=== PATIENT | female | born 1990 | race Caucasian/White ===

== ENCOUNTER 2016-07-05 13:52 | Outpatient (CLI) | payer BC, OTHER ==
[~2016-07-05] VITALS: Ht 154.9 cm; Wt 57.4 kg
[2016-07-05 14:30] VITALS: BP 115/66; PULSE 79; RESP 16
[2016-07-05] MEDS ORDERED: PRENAT PO (14:32)
[2016-07-05] MEDS ORDERED: FERR236T PO (14:32)
[2016-07-05] MEDS ORDERED: CALC600T11 PO (14:33)
[2016-07-05] MEDS ORDERED: VITA200C36 PO (14:34)
[2016-07-05] MEDS ORDERED: ASC500 PO (14:35)
--- NOTE | 2016-07-05 15:51 | RADRPT ---
PROCEDURE: OB ultrasound for biophysical profile CLINICAL INDICATION: Decreased movement TECHNIQUE: Multiple sonographic images of the pelvis were obtained. Transabdominal view of the gr avid uterus are available for review. The images were reviewed on a PACS workstation. COMPARISON: None FINDINGS: breathing movement = 2/2 tone = 2/2 motion = 2/2 VERITO = 2/2 The deepest vertical pocket of amniotic fluid equals 5.06 cm, within normal limits. Single live intrauterine with cardiac activity. heart rate equals 144 beats p er minute. Presentation is cephalic. The placenta is anterior. IMPRESSION: 1. Single viable intrauterine gestation. 2. Biophysical profile = 11/30. RPTAT: KK .Delfin Rivera MD, MD Date Time Electronically viewed and signed by .Delfin Rivera MD, MD on 07/05/2016 15:51 .B/
--- NOTE | 2016-07-05 18:38 | PN ---
DATE: This is an intrauterine at 23 weeks. ____. No vaginal bleeding. Positive movement . Vital signs stable. Exam within normal limits. Ultrasound shows ____. There is good move ment ____. Was discharged home. Follow up with her ENVIRONMENTAL MARKETING REPRESENTATIVE within 1 week. Dictated By: IRVING JUAREZ MD /NTS Conf#: [id number] DID#: [id number]
--- NOTE | 2016-07-05 19:12 | TRIAGE ---
OB Triage Datetime Report Generated by CPN: 07/05/2016 19:12 Datetime: 07/05/2016 18:10 Labor Evaluation Frequency: 0 Monitor Mode: External Pattern: Normal: <= 5 Contractions in 10 Minutes Resting Tone [place]: Relaxed Datetime: 07/05/2016 17:26 Labor Evaluation Frequency: 0 Monitor Mode: External Quality: Mild Pattern: Normal: <= 5 Contractions in 10 Minutes Resting Tone [place]: Relaxed Datetime: 07/05/2016 17:00 Labor Evaluation Frequency: x2 Monitor Mode: External Duration (sec)2399: 50 Quality: Mild Pattern: Normal: <= 5 Contractions in 10 Minutes Resting Tone [place]: Relaxed Datetime: 07/05/2016 16:00 Labor Evaluation Frequency: x4 Monitor Mode: External Duration (sec)2399: 50-60 Quality: Mild Pattern: Normal: <= 5 Contractions in 10 Minutes Resting Tone [place]: Relaxed Contraction Comments: PT REPORTS NOT FEELING CTX Datetime: 07/05/2016 15:00 Labor Evaluation Frequency: x2 Monitor Mode: External Duration (sec)2399: 40-50 Quality: Mild Pattern: Normal: <= 5 Contractions in 10 Minutes Resting Tone [place]: Relaxed Datetime: 07/05/2016 14:13 Stage of : OB Triage Maternal Assessment Level of Consciousness: Fully Conscious Headache: Denies Blurred Vision: No Respiratory Effort: Unlabored; Regular Rhythm; Equal Expansion Breath Sounds, Left: Clear and Equal Breath Sounds, Right: Clear and Equal Nausea/Vomiting: Denies RUQ Epigastric Pain: Denies Lower Extremities Edema: None Degree: None Upper Extremities Edema: None Degree: None Facial Edema: None Temperature Route: Axillary Fall Risk Assessment History of Falling: (0) No Secondary Diagnosis: (0) No Ambulatory Aid: (0) Bedrest/Nurse Assist IV Therapy: (0) No Gait: (0) Normal/Bedrest/Immobile Mental Status: (0) Oriented to Own Ability Fall Score: 0 Fall Risk Score Definition: No Risk: No action required Heart Rate Comments: 135-160BPM VIA DOPPLER Datetime: 07/05/2016 14:02 Time of Arrival: 07/05/2016 13:50 EGA: 23.3 Arrived By: Ambulatory Arrived From: Home Chief Complaint: NO MOVEMENT SINCE 07/03 PM; PT CONCERNED THAT WALKING THROUGH A SPRAY OF PES TICIDES AT HOME DEPOT ON 07/04 @1900 HAS HARMED FETUS. Movement: Absent Rupture of Membranes: Denies Vaginal Bleeding: None Vaginal Discharge: Denies Patient Complaints: Other Additional Patient Complaints: RUNNY NOSE SINCE MARCH WITH BLOOD Time Provider Notified: 07/05/2016 15:23 Initial Plan: DOPPLER, TOCO
== END 2016-07-05 18:43 | disposition home or self-care (01) ==
LOC: OBT 13:52 → L-D 13:53 → OBT 18:43
PROVIDERS: ATTEND Obstetrics & Gynecology
DX: O36.8120 Decreased fetal movements, second trimester, not applicable or unspecified (principal); Z3A.23 23 weeks gestation of pregnancy
CPT/HCPCS: 76818; Z7500; G0463

== ENCOUNTER 2016-10-19 20:21 | Outpatient (CLI) | payer BC ==
[~2016-10-19] VITALS: Ht 154.9 cm; Wt 65.2 kg
[~2016-10-19 20:21] MED LIST: ASC500 PO; CALC600T11 PO; FERR236T PO; PRENAT PO; VITA200C36 PO
[2016-10-19 20:43] VITALS: BP 109/58; PULSE 76; RESP 18; Ht 154.9 cm; Wt 65.2 kg
--- NOTE | 2016-10-19 21:29 | RADRPT ---
PROCEDURE: OB ultrasound for biophysical profile CLINICAL INDICATION: Biophysical profile. . TECHNIQUE: Multiple sonographic images of the pelvis were obtained. Transabdominal views are obta ined. COMPARISON: 10/19/2016 FINDINGS: Single intrauterine gestation. Presentation: Cephalic. Placenta: Anterior. No evidence of placental abruption. No evidence of placenta previa. breathing movement = 2/2 tone = 2/2 motion = 2/2 VERITO = 2/2 VERITO = 8.9 cm heart rate: 152 beats per minute IMPRESSION: Single intrauterine gestation. Biophysical profile 11/30 RPTAT: AADD .Haseeb Barron MD, MD Date Time Electronically viewed and signed by .Haseeb Barron MD, on 10/19/2016 21:29 .B/
--- NOTE | 2016-10-19 21:34 | RADRPT ---
PROCEDURE: Obstetrical ultrasound. CLINICAL INDICATION: , evaluation. Pelvic pain. TECHNIQUE: Transabdominal sonographic images of the pelvis are obtained. COMPARISON: 07/05/2016 FINDINGS: Single intrauterine gestation. There is a cephalic presentation. Measurements were made in order to determine age. The results are as follows: BPD = 8.86 cm, 35 weeks 6 days HC = 31.65 cm, 35 weeks 4 days AC = 33.13 cm, 37-week 0 days; this is suboptimally visualized and may be slightly over measured. FL = 6.97 cm, 35 weeks 5 days Heart rate = 168 beats per minute The placenta is anterior. There is no evidence for an abruption or placenta previa. Ovaries are not visualized. IMPRESSION: Single intrauterine gestation of approximately 36 weeks 0 days by ultrasound criteria. [place] estimated weight = 2932 g; 16 percentile for gestational age of 38 weeks 4 days. RPTAT: AADD .Haseeb Barron MD, MD Date Time Electronically viewed and signed by .Haseeb Barron MD, on 10/19/2016 21:34 .B/
--- NOTE | 2016-10-19 22:00 | PN ---
Triage Information Date/Time 10/19/16 2150 Weeks of Gestation 38w 4d : 1 Para: 0 Diabetes: none Hypertention: none Objective Vital Signs Date Time Temp Pulse Resp B/P Pulse Ox O2 Delivery O2 Flow Rate FiO2 10/19/16 20:43 97.7 76 18 109/58 97 Room Air Heart Rate: 140's Contractions: >10 Minutes Apart Results/Medications Imaging Results EFW 2932 gm 16 5 VERITO 8.9 BPP 8/8 NST reactive Assessment/Plan RTH in 3days for f/u for NST BPP RTH with routine labor instructions NICHOLAS KITCHEN MD Oct 19, 2016 22:00
--- NOTE | 2016-10-19 22:23 | TRIAGE ---
OB Triage Datetime Report Generated by CPN: 10/19/2016 22:22 Datetime: 10/19/2016 21:53 Labor Evaluation Frequency: IRREGULAR Monitor Mode: External Duration (sec)2399: 50-120 Quality: Mild Pattern: Normal: <= 5 Contractions in 10 Minutes Resting Tone [place]: Relaxed Contraction Comments: PT DENIES FEELING CONTRACTIONS Heart Rate FHR Baseline Rate: 130 Monitor Mode: External US FHR Baseline Changes: No Baseline Change Variability: Moderate 6-25 bpm Accelerations: 15X15 Decelerations: None Category: Category I Pain Assessment Pain Scale: 0 Pain Presence: None/Denies Pain Type: N/A Datetime: 10/19/2016 21:18 Membrane Status: Intact Datetime: 10/19/2016 21:06 Vaginal Exam Dilatation (cms): 0.0 Datetime: 10/19/2016 20:48 Stage of : OB Triage Maternal Assessment Level of Consciousness: Fully Conscious DTR's/Clonus: DTRs 2+; No Clonus Headache: Denies Blurred Vision: No Respiratory Effort: Unlabored; Regular Rhythm; Equal Expansion Breath Sounds, Left: Clear and Equal Breath Sounds, Right: Clear and Equal Nausea/Vomiting: Denies RUQ Epigastric Pain: Denies Lower Extremities Edema: None Degree: None Upper Extremities Edema: None Degree: None Facial Edema: None Temperature Route: Oral Fall Risk Assessment History of Falling: (0) No Secondary Diagnosis: (0) No Ambulatory Aid: (0) Bedrest/Nurse Assist IV Therapy: (0) No Gait: (0) Normal/Bedrest/Immobile Mental Status: (0) Oriented to Own Ability Fall Score: 0 Fall Risk Score Definition: No Risk: No action required Datetime: 10/19/2016 20:40 Time of Arrival: 10/19/2016 20:17 EGA: 38.4 Arrived By: Ambulatory Arrived From: Home Chief Complaint: NST Movement: Present Contractions: Denies/Absent Rupture of Membranes: Denies Vaginal Bleeding: None Vaginal Discharge: Denies Recent Sexual Intercouse: Yes Abdominal Trauma: Not Applicable Patient Complaints: None Time Provider Notified: 10/19/2016 20:53 Provider Notified: FIDELINA Initial Plan: EFW, BPP WITH VERITO, NST Datetime: 10/19/2016 20:31 Monitor Mode: External Heart Rate FHR Baseline Rate: 140 Monitor Mode: External US Datetime: 07/05/2016 14:13 Fall Score: 0 Fall Risk Score Definition: No Risk: No action required Datetime: 07/05/2016 14:02 EGA: 23.3
== END 2016-10-19 22:10 | disposition home or self-care (01) ==
LOC: OBT 20:21 → L-D 20:25 → OBT 22:10
PROVIDERS: ATTEND Obstetrics & Gynecology
DX: O41.8X30 Other specified disorders of amniotic fluid and membranes, third trimester, not applicable or unspecified (principal); Z3A.38 38 weeks gestation of pregnancy
CPT/HCPCS: 76815; 76818; Z7500; G0463

== ENCOUNTER 2016-10-22 13:22 | Outpatient (CLI) | payer BC ==
[~2016-10-22] VITALS: Ht 154.9 cm; Wt 141.0 kg
[2016-10-22 13:45] VITALS: BMI 28.0
[2016-10-22 13:46] VITALS: BP 112/71; PULSE 86; RESP 18
[2016-10-22 13:48] VITALS: Ht 154.9 cm; Wt 141.0 kg
--- NOTE | 2016-10-22 14:38 | RADRPT ---
PROCEDURE: Obstetrical ultrasound CLINICAL INDICATION: IUGR TECHNIQUE: Multiple sonographic images of the pelvis were obtained. The images were reviewed on a PACS workstation. COMPARISON: Obstetrical ultrasound from 10/19/2016 FINDINGS: The cervix is not well visualized. There is a single viable intrauterine gestation. Cardiac activity is present with 126 beats per minute. There is a vertex presentation. The placenta is anterior. There is no evidence for an abruption or placenta previa. There is a subjectively normal amount of amniotic fluid. Measurements were made in order to determine age. The results are as follows (cm): BPD =8.80 HC =31.76 AC =34.06 FL =6.87 Estimated gestational age by ultrasound of approximately 36 weeks, 1 day. The estimated date of delivery by ultrasound is 11/18/2016. Estimated gestational age by LMP of approximately 39 weeks, 0 days. The estimated date of delivery by LMP is 10/29/2016. EFW = 3034 grams (17th percentile) IMPRESSION: Single viable intrauterine gestation of approximately 36 weeks, 1 day . The estimated date of delivery is and 11/18/2016 . Dating by ultrasound is within 20 days of dating by LMP. Cephalic presentation. Estimated weight is 3034 g. RPTAT: EE Physician Robb Date Time Electronically viewed and signed by Physician Robb on 10/22/2016 14:37 /
--- NOTE | 2016-10-22 14:39 | RADRPT ---
PROCEDURE: US OB biophysical profile. CLINICAL INDICATION: evaluation TECHNIQUE: Multiple sonographic images of the pelvis were obtained. The images were reviewed on a PACS workstation. COMPARISON: Obstetrical ultrasound from 10/19/2016 FINDINGS: There is a single viable intrauterine gestation. Cardiac activity is present with 141 beats per min rizwan. There is a vertex presentation. The placenta is anterior. There is no evidence of placental abruption. There is a mildly low amount of amniotic fluid with an VERITO = 7.3 cm. Biophysical profile: movement 2/2 tone 2/2. breathing 2/2 VERITO 2/2 Total 11/30 RPTAT: AA . IMPRESSION: Normal biophysical profile. Mildly low VERITO of 7.3 cm. Physician Robb Date Time Electronically viewed and signed by Physician Robb on 10/22/2016 14:39 RA/
--- NOTE | 2016-10-22 17:32 | CONS ---
Date/Time of Note Date/Time of Note DATE: 10/22/16 TIME: 17:25 Consultation Date/Type/Reason Admit Date/Time October 22, 2016 OB triage consult Reason for Consultation This patient is a 26 years old 1 para 0 with estimated date of confinement of October 29, 2016 which makes her 39 weeks and 0 days . she came to the triage clinic for follow-up on her fairly low estimated weight and for follow-up of the possible IUGR. On examination she is a well-developed well-nourished lady at term her . general vital signs are within normal limits with blood pressure 112/71, pulse rate of 86, respiration 18,, temperature 91.8 During her evaluation she was having regular contractions and on pelvic examination her cervix was closed ,long with intact membranes abdomen was soft Constitutional: No chills, No diaphoresis, No disoriented, No febrile, No improved, No no complaints, No other, No poor po, No requiring IVF, No requiring O2 Eyes: No discharge, No no complaints, No other, No pain, No redness, No visual change ENT: No bleeding, No congestion, No discharge, No dysphagia, No no complaints, No other, No pain, No sore throat Respiratory: No cough, No no complaints, No other, No pain, No pleuritic pain, No shortness of breath, No sputum, No wheezing Cardiovascular: No chest pain, No edema, No lightheadedness, No no complaints, No orthopenea, No other, No palpitations, No paroxysmal nocturnal dyspnea Gastrointestinal: No blood, No constipation, No decreased appetite, No diarrhea , No flatus, No nausea, No no complaints, No other, No pain, No passing stool, No vomiting Genitourinary: No bleeding, No discharge, No dysuria, No flank pain, No hematuria, No no complaints, No other Musculoskeletal: other (As I mentioned on pelvic examination the cervix was closed long and membrane was intact) Skin: No bruising, No erythema, No laceration, No no complaints, No other, No pruritis, No rash, No skin lesions Neurologic: No confusion, No dizziness, No focal-weakness, No headache, No no complaints, No other, No seizure, No syncope Endocrine: No dry skin, No no complaints, No other, No polydypsia, No polyuria , No temp intolerance Psychological: No anxiety, No confusion, No depression, No nl mood/affect, No no complaints, No other, No suicidal Additional Comments On ultrasound studies the report is a single viable intrauterine gestation with cardiac activity was 141 bpm vertex presentation no evidence of placenta previa or abruption her VERITO today was 7.3 biophysical profile 11/30 on her measurement estimated weight was 3034 g which is 17th percentile at this stage of the estimated gestational age by ultrasound is 36 weeks and 1 day by LMP consult 10/29/2016 Disposition:. All of the findings was reported to Dr. Ann which is covering for Dr. Alexander Patient was distress regarding doing the kick count and if any evidence of low movement labor or any vaginal bleeding to return to labor delivery room immediately. end of dictation Social History Smoking Status: Never smoker Exam/Review of Systems Vital Signs Vitals Vital Signs Date Time Temp Pulse Resp B/P Pulse Ox O2 Delivery O2 Flow Rate FiO2 10/22/16 13:46 97.8 86 18 112/71 Room Air LAZARUS HERNANDEZ MD Oct 22, 2016 17:32
--- NOTE | 2016-10-22 17:56 | TRIAGE ---
OB Triage Datetime Report Generated by CPN: 10/22/2016 17:55 Datetime: 10/22/2016 17:14 Stage of : OB Triage Vaginal Exam Dilatation (cms): 0.0 Effacement (%): 0 Station: -4 Exam By: DR. FOROOHAR Datetime: 10/22/2016 17:13 Labor Evaluation Frequency: IRREG Monitor Mode: External Duration (sec)2399: 40-80 Quality: Mild Pattern: Normal: <= 5 Contractions in 10 Minutes Contraction Comments: PT DENIES FEELING UC'S AT THIS TIME Heart Rate FHR Baseline Rate: 125 Monitor Mode: External US Variability: Moderate 6-25 bpm Accelerations: 15X15 Decelerations: None Category: Category I Comments: NST REACTIVE FOR GESTATIONAL AGE Pain Assessment Pain Scale: 0 Pain Presence: None/Denies Pain Type: N/A Pain Goal: 0 Datetime: 10/22/2016 16:31 Monitor Mode: External Quality: Mild Contraction Comments: UTERINE IRRITABILITY NOTED AT THIS TIME Heart Rate FHR Baseline Rate: 130 Monitor Mode: External US Variability: Moderate 6-25 bpm Accelerations: 15X15 Decelerations: None Category: Category I Datetime: 10/22/2016 15:25 Labor Evaluation Frequency: 3-6 Monitor Mode: External Duration (sec)2399: 50-90 Quality: Mild Pattern: Normal: <= 5 Contractions in 10 Minutes Resting Tone [place]: Relaxed Heart Rate FHR Baseline Rate: 135 Monitor Mode: External US Variability: Moderate 6-25 bpm Accelerations: 15X15 Decelerations: None Category: Category I Datetime: 10/22/2016 13:54 Assessment Type: Admission Assessment Maternal Assessment Level of Consciousness: Fully Conscious DTR's/Clonus: DTRs 2+; No Clonus Headache: Denies Blurred Vision: No Respiratory Effort: Unlabored; Regular Rhythm; Equal Expansion Breath Sounds, Left: Clear and Equal Breath Sounds, Right: Clear and Equal Nausea/Vomiting: Denies RUQ Epigastric Pain: Denies Lower Extremities Edema: None Degree: None Upper Extremities Edema: None Degree: None Facial Edema: None Fall Risk Assessment History of Falling: (0) No Secondary Diagnosis: (0) No Ambulatory Aid: (0) Bedrest/Nurse Assist IV Therapy: (0) No Gait: (0) Normal/Bedrest/Immobile Mental Status: (0) Oriented to Own Ability Fall Score: 0 Fall Risk Score Definition: No Risk: No action required Labor Evaluation Frequency: IRREGULAR Duration (sec)2399: 40-100 Quality: Mild Pattern: Normal: <= 5 Contractions in 10 Minutes Resting Tone [place]: Relaxed Heart Rate FHR Baseline Rate: 140 Monitor Mode: External US Variability: Moderate 6-25 bpm Accelerations: 15X15 Decelerations: None Category: Category I Datetime: 10/22/2016 13:52 Time of Arrival: 10/22/2016 13:20 EGA: 39.0 Arrived By: Ambulatory Arrived From: Home Chief Complaint: FOLLOW UP NST, BPP AND EFW Movement: Present Contractions: Denies/Absent Rupture of Membranes: Denies Vaginal Bleeding: None Vaginal Discharge: Denies Recent Sexual Intercouse: Denies Abdominal Trauma: Not Applicable Patient Complaints: None; Other Time Provider Notified: 10/22/2016 16:15 Provider Notified: DR. HERNANDEZ Initial Plan: NST, BPP AND EFW Datetime: 10/19/2016 20:48 Fall Score: 0 Fall Risk Score Definition: No Risk: No action required Datetime: 10/19/2016 20:40 EGA: 38.4 Datetime: 07/05/2016 14:13 Fall Score: 0 Fall Risk Score Definition: No Risk: No action required Datetime: 07/05/2016 14:02 EGA: 23.3
== END 2016-10-22 17:00 | disposition home or self-care (01) ==
LOC: OBT 13:22 → L-D 13:23 → OBT 17:00
PROVIDERS: ATTEND Obstetrics & Gynecology
DX: O41.93X0 Disorder of amniotic fluid and membranes, unspecified, third trimester, not applicable or unspecified (principal); Z3A.39 39 weeks gestation of pregnancy
CPT/HCPCS: 76815; 76818; Z7500; G0463

== ENCOUNTER 2016-10-25 13:35 | Inpatient (IN) | payer BC ==
[~2016-10-25] VITALS: Ht 154.9 cm; Wt 65.3 kg
[~2016-10-25 13:35] MED LIST changes: -ASC500 PO; -VITA200C36 PO
[2016-10-25 14:17] VITALS: BP 105/56; PULSE 78; RESP 18; Ht 154.9 cm; Wt 65.3 kg
--- NOTE | 2016-10-25 15:33 | RADRPT ---
PROCEDURE: US OB biophysical profile. CLINICAL INDICATION: decreased movements, labor TECHNIQUE: Multiple sonographic images of the pelvis were obtained. The images were reviewed on a PACS workstation. COMPARISON: 09/25/2016 FINDINGS: There is a single viable intrauterine gestation. Cardiac activity is present with 138 beats per min [place]. There is a vertex presentation. The placenta is anterior. There is no evidence for an abruption or placenta previa. There is a decreased amount of amniotic fluid with an VERITO = 6.1 cm. Biophysical profile: movement 2/2 tone 2/2. breathing 2/2 VERITO 2/2 Total 11/30 RPTAT: AA . IMPRESSION: Normal biophysical profile. Mild oligohydramnios. . .Nilay Veronica MD, MD Date Time Electronically viewed and signed by .Nilay Veronica MD, MD on 10/25/2016 15:33 .S/
--- NOTE | 2016-10-25 15:33 | RADRPT ---
PROCEDURE: US OB. CLINICAL INDICATION: Size and dates , labor TECHNIQUE: Multiple sonographic images of the pelvis and gravid uterus were obtained. The images were reviewed on a PACS workstation. COMPARISON: 09/25/2016 FINDINGS: There is a single viable intrauterine gestation. Cardiac activity is present with 154 beats per min rizwan. There is a vertex presentation. The placenta is anterior. There is no evidence for an abruption or placenta previa. There is a decreased amount of amniotic fluid with an VERITO = 6.1 cm. Measurements were made in order to determine age. The results are as follows: BPD =8.9 cm HC =32.3 cm AC =35.5 cm FL =7.2 cm Estimated gestational age of approximately 37 weeks and 2 days based on ultrasound measurements. Clinical age: 39 weeks and 3 days. The estimated date of delivery is 11/13/16, based on ultrasound measurements. The EFW = 3391 g, 39%, based on LMP age. RPTAT: AA IMPRESSION: Single viable intrauterine gestation of approximately 37 weeks and 2 days based on ultrasound measu rements. .Nilay Veronica MD, Date Time Electronically viewed and signed by .Nilay Veronica MD, on 10/25/2016 15:33 .S/
[2016-10-25] MEDS ORDERED: DINOPROSTONE 10 MG VAG SUPP VAG ONE (16:30)
[2016-10-25] MEDS ORDERED: CARBOPROST 250 MCG INJ IM PRN (16:30)
[2016-10-25] MEDS ORDERED: ACETAMINOPHEN/CODEINE #3 TAB PO PRN (16:30)
[2016-10-25] MEDS ORDERED: OXYTOCIN 30 UNITS/LR 500 ML IV PRN (16:30)
[2016-10-25] MEDS ORDERED: BUTORPHANOL 2 MG INJ IV PRN (16:30)
[2016-10-25] MEDS ORDERED: OXYTOCIN 30 UNITS/LR 500 ML IV SCH ×2 (16:30)
[2016-10-25] MEDS ORDERED: METHYLERGONOVINE 0.2 MG INJ IM PRN (16:30)
[2016-10-25] MEDS ORDERED: IBUPROFEN 600 MG TAB PO PRN (16:30)
[2016-10-25] MEDS ORDERED: AMPICILLIN 2 GM/NS (PMX) 100 ML IV ONE (16:30)
[2016-10-25] MEDS ORDERED: MISOPROSTOL 200 MCG TAB PR PRN (16:30)
[2016-10-25] MEDS ORDERED: LIDOCAINE 1% (MPF) 30 ML INJ INJ PRN (16:30)
[2016-10-25] MEDS ORDERED: LACTATED RINGER'S 500 ML IV ONE (17:00)
[2016-10-25 17:04] LABS: ADD SCAN DIFF NO
[2016-10-25 17:06] LABS: BASOPHILS % 0.2 % (0.0-2.0); EOSINOPHILS # 0.1 10^3/ul (0.0-0.5); EOSINOPHILS % 0.7 % (0.0-7.0); HEMOGLOBIN 12.5 g/dl (12.0-16.0); LYMPHOCYTES # 1.3 10^3/ul (0.8-2.9); LYMPHOCYTES % 15.1 % (15.0-51.0); MEAN CORPUSCULAR HEMOGLOBIN 31.8 pg (29.0-33.0); MEAN CORPUSCULAR HGB CONC 34.7 g/dl (32.0-37.0); MEAN CORPUSCULAR VOLUME 91.6 fl (82.0-101.0); MEAN PLATELET VOLUME 10.4 fl (7.4-10.4); MONOCYTE # 0.8 10^3/ul (0.3-0.9); MONOCYTES % 8.4 % (0.0-11.0); NEUTROPHIL # 6.7 10^3/ul (1.6-7.5); PLATELET COUNT 211 10^3/UL (140-415); RED BLOOD COUNT 3.93 10^6/ul (4.20-5.40); RED CELL DISTRIBUTION WIDTH 12.5 % (11.5-14.5); WHITE BLOOD COUNT 8.9 10^3/ul (4.8-10.8)
[2016-10-25 17:21] LABS: INR 0.89; PT RATIO 0.9
[2016-10-25 17:22] LABS: PARTIAL THROMBOPLASTIN TIME 27.2 Sec (25.0-35.0)
[2016-10-25] MEDS: LACTATED RINGER'S 1,000 ML IV SCH ×2 (17:56→23:33)
[2016-10-25] MEDS ORDERED: AMPICILLIN 1 GM/NS (PMX) 50 ML IV SCH (20:30)
[2016-10-25] MEDS ORDERED: LACTATED RINGER'S 1,000 ML IV PRN (23:00)
[2016-10-26] MEDS: AMPICILLIN 2 GM/NS (PMX) 100 ML IVPB SCH ×3 (00:07→18:27)
[2016-10-26] MEDS: LACTATED RINGER'S 1,000 ML IV SCH ×4 (05:56→16:49)
[2016-10-26] MEDS ORDERED: FENTAnyl 2MCG/ML-ROPIV 0.2% 100 ML ONE (10:31)
[2016-10-26] MEDS ORDERED: DIPHENHYDRAMINE 50 MG INJ IV PRN (11:30)
[2016-10-26] MEDS ORDERED: HYDROmorphONE 1 MG/ML SYG IV PRN ×2 (11:30)
[2016-10-26] MEDS ORDERED: ONDANSETRON 4 MG INJ IV PRN (11:30)
[2016-10-26] MEDS ORDERED: NALOXONE (0.4 MG/ML) INJ IV PRN (11:30)
[2016-10-26] MEDS ORDERED: OXYTOCIN 30 UNITS/LR 500 ML IV SCH (14:50)
[2016-10-26] MEDS: FENTAnyl 2MCG/ML-ROPIV 0.2% 100 ML BAG EPI SCH (18:45)
[2016-10-27] MEDS: AMPICILLIN 2 GM/NS (PMX) 100 ML IVPB SCH ×3 (00:05→06:01)
[2016-10-27] MEDS: FENTAnyl 2MCG/ML-ROPIV 0.2% 100 ML BAG EPI SCH (01:47)
[2016-10-27] MEDS: LACTATED RINGER'S 1,000 ML IV SCH ×3 (02:08→22:13)
[2016-10-27] MEDS ORDERED: OXYTOCIN 30 UNITS/LR 500 ML BAG IV ONE (07:00)
[2016-10-27] MEDS ORDERED: MISOPROSTOL 200 MCG TAB PR PRN ×2 (08:30→12:30)
[2016-10-27] MEDS ORDERED: METHYLERGONOVINE 0.2 MG INJ IM PRN ×2 (08:30→12:30)
[2016-10-27] MEDS ORDERED: OXYTOCIN 30 UNITS/LR 500 ML IV PRN ×2 (08:30→12:30)
[2016-10-27] MEDS ORDERED: AMPICILLIN 2 GM/NS (PMX) 100 ML IV SCH (08:30)
[2016-10-27] MEDS ORDERED: CARBOPROST 250 MCG INJ IM PRN ×2 (08:30→12:30)
[2016-10-27] MEDS ORDERED: CEFAZOLIN 2 GM/50 ML (PMX) 50 ML IVPB ONE (08:54)
[2016-10-27] MEDS ORDERED: PHENYLephrine (100 MCG/ML) 5ML SYG ONE ×2 (10:27→11:03)
[2016-10-27] MEDS ORDERED: OXYTOCIN 10 UNIT INJ ONE (10:27)
[2016-10-27] MEDS ORDERED: morphine SULFATE/PF (10 MG/10 ML) INJ ONE (10:28)
[2016-10-27] MEDS ORDERED: FENTAnyl 50 MCG/ML VIAL ONE ×2 (10:43→11:08)
[2016-10-27] MEDS ORDERED: METOCLOPRAMIDE 10 MG INJ ONE (11:03)
[2016-10-27] MEDS ORDERED: DIPHENHYDRAMINE 50 MG INJ IV PRN (11:30)
[2016-10-27] MEDS ORDERED: KETOROLAC 30 MG INJ IV PRN (11:30)
[2016-10-27] MEDS ORDERED: ONDANSETRON 4 MG INJ IV PRN ×2 (11:30→12:30)
[2016-10-27] MEDS ORDERED: NALOXONE (0.4 MG/ML) INJ IV PRN (11:30)
[2016-10-27] MEDS ORDERED: morphine 2 MG INJ IV PRN (11:30)
--- NOTE | 2016-10-27 12:01 | OPR ---
Date/Time of Note Date/Time of Note DATE: 10/27/16 TIME: 11:44 Operative Report Free Text/Dictation Procedure The patient was placed in the supine position after the epidural was boosted up by the anesthesiologist. A transverse incision was made 2 cm of the pubic bone of about 10 cm in diameter. The abdomen was opened in layers without difficulties. The abdominal cavity was released. The bladder flap was made. An Gustavo retractor was placed in. The uterus was opened in the midline with a scalpel and incision was increased laterally of about 2 inches the amniotic fluid was clear the baby's head was seen in occipitotransverse position, I tried to move the baby to anterior position and she will go back to the transverse position for which the Gustavo retractor was removed and the vacuum was used to help deliver the baby's head. It was a baby girl Apgars 9. The cord was clamped and cut after the baby was born and the baby was handed over to the prepress manager team , the blood from the cord was obtained and the placenta was removed after the uterus was contracted and swept out. the closure of the incision was made with #1 Monocryl in 2 layers and hemostasis was achieved with interrupted sutures with 01 0 Vicryl. At this time the abdominal cavity was cleaned out of blood products and both ovaries were looking normal with 2 tiny masses on the tip of the ovary that appear to be a small fibromas. the 2 tiny masses were removed and sent for pathology report. The uterus was normal and otherwise the tubes were normal the abdominal cavity was cleaned out and closed in layers using a 2-0 Vicryl for the peritoneal tissue, #0 PDS loop suture for the fascia, 2-0 Vicryl for the subcutaneous tissue and 3-0 Monocryl subcuticular to the skin. Dermabond was applied and Steri-Strips and the patient tolerated the procedure well and left the OR awake and stable sponge counts and instruments counts were correct and intravenous antibiotics were given for prophylaxis, blood loss was about 600 cc. Procedure Date: Oct 27, 2016 Preoperative Diagnosis 39.1 WEEKS FAILED INDUCTION OLIGOHYDRAMNIOS Postoperative Diagnosis SAME BABY GIRL 9 PERSISTENT OCCIPITO TRANSVERSE POSITION Operation Performed PRIMARY LOW SEGMENT TRANSVERSE C/S EXCISION OF BILATERAL ADNEXAL MASSES Surgeon: JORGE A STUART MD Life Skills Coordinator: TRISHA NELSON MD Anesthesia: epidural Anesthesiologist: JOSHUA GARCES MD Estimated Blood Loss: other Complications: None Pt Condition Post Procedure: stable Disposition: PACU Operative\Procedure Findings PERSISTENT OCCIPITO TRANSVERSE POSITION JORGE A STUART MD Oct 27, 2016 12:00
--- NOTE | 2016-10-27 12:19 | HPN ---
Date/Time of Note Date/Time of Note DATE: 10/27/16 TIME: 12:12 Interval H&P Admission Note Pt. seen H&P reviewed: No system changes The patient has been induced for more than 36 hours and she had not progressed in her labor, the baby's head has not dropped down the pelvic canal and it is at a -3 station still, she is 3 cm dilated and with bleeding with some early decelerations with no progress of labor. She has been trying to avoid the section but after over 12 hours that she has not progressed in her dilatation or descent of the head, she was offered a and she agreed to go ahead with it, the preoperative consent was obtained and the patient was advised of the possible risk and possible complications of the procedure with her alternatives and options and written information was provided and she agreed to go ahead with the procedure with full understanding and no more questions. The physical examination has not changed the patient had spontaneously ruptured the water bag in the night and her dilatation has been the same than the station of the baby's head has been the same the amniotic fluid was clear and she was afebrile with normal pulses and normal blood pressures and the rest of the physical examination was noncontributory. She was getting prepared for a section. JORGE A STUART MD Oct 27, 2016 12:19
[2016-10-27] MEDS ORDERED: CEFAZOLIN 2 GM/50 ML (PMX) 50 ML IV SCH (12:30)
[2016-10-27] MEDS ORDERED: METHYLERGONOVINE 0.2 MG TAB PO PRN (12:30)
[2016-10-27] MEDS ORDERED: LANOLIN 7 GM TUBE TOP PRN (12:30)
[2016-10-27] MEDS ORDERED: NA PHOSPHATE/BIPHOS 133 ML ENEMA PR PRN (12:30)
[2016-10-27] MEDS: OXYTOCIN 30 UNITS/LR 500 ML IV SCH ×2 (12:53→17:36)
[2016-10-27 14:15] VITALS: BP 129/65; PULSE 74; RESP 18
[2016-10-27] MEDS: KETOROLAC 30 MG INJ IV SCH ×2 (15:00→17:38)
[2016-10-27 17:20] VITALS: BP 132/58; PULSE 80; RESP 16
[2016-10-27] MEDS: CEFAZOLIN 2 GM/50 ML (PMX) 50 ML IVPB SCH (17:35)
[2016-10-27 20:00] VITALS: BP 112/60; PULSE 63; RESP 18
[2016-10-27] MEDS: SENNA/DOCUSATE NA (8.6MG/50MG) TAB PO SCH (21:52)
[2016-10-28] VITALS: BP 107/59; PULSE 68; RESP 17
[2016-10-28] MEDS: KETOROLAC 30 MG INJ IV SCH ×3 (00:13→11:53)
[2016-10-28] MEDS: CEFAZOLIN 2 GM/50 ML (PMX) 50 ML IVPB SCH ×2 (02:03→10:30)
[2016-10-28 04:00] VITALS: BP 100/56; PULSE 63; RESP 18
[2016-10-28] MEDS: LACTATED RINGER'S 1,000 ML IV SCH (06:22)
[2016-10-28 07:58] LABS: ADD SCAN DIFF NO
[2016-10-28 08:13] LABS: BASOPHILS % 0.2 % (0.0-2.0); EOSINOPHILS # 0.1 10^3/ul (0.0-0.5); EOSINOPHILS % 0.4 % (0.0-7.0); HEMATOCRIT 32.1 % (37.0-47.0); LYMPHOCYTES % 8.6 % (15.0-51.0); MEAN CORPUSCULAR HEMOGLOBIN 31.5 pg (29.0-33.0); MEAN CORPUSCULAR HGB CONC 34.3 g/dl (32.0-37.0); MEAN PLATELET VOLUME 10.1 fl (7.4-10.4); MONOCYTE # 0.9 10^3/ul (0.3-0.9); MONOCYTES % 7.9 % (0.0-11.0); NEUTROPHIL # 9.8 10^3/ul (1.6-7.5); NEUTROPHILS % 82.4 % (39.0-77.0); PLATELET COUNT 157 10^3/UL (140-415); RED BLOOD COUNT 3.49 10^6/ul (4.20-5.40); RED CELL DISTRIBUTION WIDTH 12.6 % (11.5-14.5); WHITE BLOOD COUNT 11.9 10^3/ul (4.8-10.8)
[2016-10-28 08:15] VITALS: BP 93/46; PULSE 65; RESP 17
[2016-10-28] MEDS: SENNA/DOCUSATE NA (8.6MG/50MG) TAB PO SCH ×2 (09:17→21:11)
[2016-10-28 11:54] VITALS: BP 104/51; PULSE 68; RESP 19
[2016-10-28] MEDS: ACETAMINOPHEN/CODEINE #3 TAB PO PRN ×3 (11:54→21:11)
[2016-10-28 16:15] VITALS: BP 104/51; PULSE 56; RESP 18
[2016-10-28] MEDS: IBUPROFEN 800 MG TAB PO SCH ×2 (17:20→23:45)
[2016-10-28 20:15] VITALS: BP 104/54; PULSE 66; RESP 19
--- NOTE | 2016-10-28 20:51 | CONS ---
Date/Time of Note Date/Time of Note DATE: 10/28/16 TIME: 20:47 Assessment/Plan Assessment/Plan Chief Complaint/Hosp Course AFEBRILE, FEELS GOOD ,GASSY BUT PASSING GASES. HUNGRY. INCISION HEALING GOOD. STABLE. Problems: Consultation Date/Type/Reason Admit Date/Time Oct 25, 2016 at 15:55 Initial Consult Date 24 HR Interval Summary Free Text/Dictation AMBULATING AND HUNGRY FEELS GOOD. STABLE VITAL SIGNS Exam/Review of Systems Vital Signs Vitals Vital Signs Date Time Temp Pulse Resp B/P Pulse Ox O2 Delivery O2 Flow Rate FiO2 10/28/16 20:15 98.1 66 19 104/54 Room Air 10/28/16 15:26 96 21 Intake and Output 10/27/16 10/27/16 10/28/16 15:00 23:00 07:00 Intake Total 1600 ml 1050 ml 1120 ml Output Total 2700 ml 1700 ml 600 ml Balance -1100 ml -650 ml 520 ml Exam Constitutional: alert, oriented, well developed Psych: nl mood/affect, no complaints Head: atraumatic, normocephalic Eyes: EOMI, PERRL, nl conjunctiva, nl lids, nl sclera ENMT: nl external ears & nose, nl lips & teeth, nl nasal mucosa & septum Neck: non-tender, supple Respiratory: clear to auscultation, normal air movement Cardiovascular: nl pulses, regular rate and rhythm Gastrointestinal: nl liver, spleen, non-tender, soft Musculoskeletal: nl extremities to inspection, nl gait and stance Extremities: normal pulses 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, nl mental status, nl speech, nl strength Skin: nl turgor, No rash or lesions Lymph: nl lymph nodes Results Result Diagram: 10/28/16 0740 Results 24 hrs Laboratory Tests Test 10/28/16 07:40 White Blood Count 11.9 #H Red Blood Count 3.49 L Hemoglobin 11.0 L Hematocrit 32.1 L Mean Corpuscular Volume 92.0 Mean Corpuscular Hemoglobin 31.5 Mean Corpuscular Hemoglobin Concent 34.3 Red Cell Distribution Width 12.6 Platelet Count 157 # Mean Platelet Volume 10.1 Neutrophils % 82.4 H Lymphocytes % 8.6 L Monocytes % 7.9 Eosinophils % 0.4 Basophils % 0.2 Nucleated Red Blood Cells % 0.0 Neutrophils # 9.8 H Lymphocytes # 1.0 Monocytes # 0.9 Eosinophils # 0.1 Basophils # 0.0 Nucleated Red Blood Cells # 0.0 Medications Medications Current Medications Methylergonovine Maleate (Methergine) 0.2 mg Q6H PRN PO VAGINAL BLEEDING; Start 10/27/16 at 12:30 Acetaminophen/ Codeine Phosphate (Tylenol No.3) 1 tab Q4H PRN PO PAIN LEVEL 4- 6 Last administered on 10/28/16 11:54; Admin Dose 1 TAB; Start 10/27/16 at 12:30 Acetaminophen/ Codeine Phosphate (Tylenol No.3) 2 tab Q4H PRN PO PAIN LEVEL 7- 10 Last administered on 10/28/16 16:11; Admin Dose 2 TAB; Start 10/27/16 at 12:30 Ibuprofen (Motrin) 800 mg Q8 PO Last administered on 10/28/16 17:20; Admin Dose 800 MG; Start 10/28/16 at 17:12 Simethicone (Mylicon) 160 mg Q8H PRN PO DISTENSION/GAS/BLOATING; Start 10/27/16 at 12:30 Senna/Docusate Sodium (Senokot-S) 1 tab BID PO Last administered on 10/28/16 09 :17; Admin Dose 1 TAB; Start 10/27/16 at 21:00 Sodium Biphosphate/ Sodium Phosphate (Fleet Enema) 133 ml DAILY PRN NC CONSTIPATION; Start 10/27/16 at 12:30 Diphtheria/ Tetanus/Acell Pertussis (Adacel) 0.5 ml ONCE ONCE IM* ; Start at 09:00; Stop 10/30/16 at 09:01 Measles/Mumps/ Rubella Vaccine Live 0.5 ml 0.5 ml ONCE ONCE SC* ; Start 10/30/16 at 09:00; Stop 10/30/16 at 09:01 Oxytocin/Lactated Ringer's 500 ml @ 0 mls/hr ONCE PRN IV For Hemorrhage Management; Start 10/27/16 at 12:30 Methylergonovine Maleate (Methergine) 0.2 mg ONCE PRN IM VAGINAL BLEEDING; Start 10/27/16 at 12:30 Carboprost Tromethamine (Hemabate) 250 mcg ONCE PRN IM VAGINAL BLEEDING; Start 10/27/16 at 12:30 Misoprostol (Cytotec) 1,000 mcg ONCE PRN NC VAGINAL BLEEDING; Start 10/27/16 at 12:30 Ondansetron HCl (Zofran Inj) 4 mg Q4H PRN IV NAUSEA AND/OR VOMITING; Start 10/27 at 12:30 JORGE A STUART MD Oct 28, 2016 20:51
[2016-10-28] MEDS ORDERED: BISACODYL (EC) 5 MG TAB PO ONE (21:00)
--- NOTE | 2016-10-28 22:13 | HP ---
Date/Time of Note Date/Time of Note DATE: 10/28/16 TIME: 21:57 OB - History Hx of Present Free Text/Dictation This is Dr. stuart dictating preoperative H&P for this patient. This patient was admitted for induction at 40 and half weeks , This patient is Dr. Alexander private patient. She was induced with Cervidil due to irregular contractions and pain. She progressed to a 3-4 cervical dilatation very slowly and she ruptured her membranes. The beat to beat variability and early decelerations were observed. she was not progressing from the dilatation of 3-4 for the last 8 hours and she was advised for a section. This patient is a 1 para 0, had normal care with Dr. Alexander and her care was uneventful. Her past history was normal with no surgical or medical antecedents. Family history is also noncontributory. On physical examination the patient's vital signs are stable with a normal blood pressure pulse and temperature. The head and neck is normal,/she has normal sinus rhythm, lungs are clear, breasts are soft nontender and no masses The abdomen was soft and uterus at term with with regular contractions. Pelvic exam showed dilatation of 3-4 cm 100% effaced -2 7station and membranes were ruptured spontaneously, she had some vaginal bleeding. The extremities were normal with normal pulses and no edema, normal reflexes. With the diagnosis of term , failed induction, oligohydramnios, no progress of labor and nonreassuring heart tones she was offered a section . she was advised of the possible risks and possible complications of the procedure with her alternatives and options, written information was provided and her questions were answered. She agreed to go ahead with the procedure with full understanding and no more questions. Past Family/Social History * Past Medical, Surgical, Family and Obstetric Histories reviewed from chart. OB Admission Exam Vital Signs Vital Signs Vital Signs Date Time Temp Pulse Resp B/P Pulse Ox O2 Delivery O2 Flow Rate FiO2 10/28/16 20:15 98.1 66 19 104/54 Room Air 10/28/16 15:26 96 21 Last 72 hours Lab Results CBC & BMP 10/28/16 07:40 JORGE A STUART MD Oct 28, 2016 22:10
[2016-10-29 04:00] VITALS: BP 109/53; PULSE 67; RESP 19
[2016-10-29] MEDS: IBUPROFEN 800 MG TAB PO SCH ×3 (05:48→22:00)
[2016-10-29 08:00] VITALS: BP 118/77; PULSE 77; RESP 18
[2016-10-29] MEDS: SENNA/DOCUSATE NA (8.6MG/50MG) TAB PO SCH ×2 (09:34→21:09)
[2016-10-29] MEDS: ACETAMINOPHEN/CODEINE #3 TAB PO PRN (09:35)
--- NOTE | 2016-10-29 12:38 | QN ---
Documentation Comment POD#1 is stable afebrile tolerates diet No VB +Flatus Adequate urine VS stable Gen NAD Abd soft NT ND Dressing to be removed Genitalai No blood at perinium --->ambulation JAIRO STACY M.D. Oct 29, 2016 12:38
[2016-10-29] MEDS ORDERED: BISACODYL (EC) 5 MG TAB PO ONE (15:30)
[2016-10-29 16:00] VITALS: BP_SYST 115; BP_SYST 124; BP_DIAS 70; BP_DIAS 88; PULSE 70; PULSE 80; RESP 18
[2016-10-29 19:30] VITALS: BP 115/65; PULSE 73; RESP 19
[2016-10-30 04:00] VITALS: BP 102/62; PULSE 79; RESP 19
[2016-10-30] MEDS: IBUPROFEN 800 MG TAB PO SCH ×2 (05:49→13:34)
[2016-10-30 07:40] VITALS: BP 115/74; PULSE 66; RESP 16
[2016-10-30] MEDS: SENNA/DOCUSATE NA (8.6MG/50MG) TAB PO SCH (08:31)
[2016-10-30] MEDS ORDERED: MEASLES,MUMPS,RUBELLA VACCINE INJ SC* ONE (09:00)
[2016-10-30] MEDS ORDERED: DIPHTH/TET/ACEL PERTUSS (ADULT) 0.5 ML VIAL IM* ONE (09:00)
--- NOTE | 2016-10-30 10:18 | QN ---
Documentation Comment POD#3 is stable afebrile tolerates diet No VB +Flatus Adequate urine VS stable Gen NAD Abd soft NT ND incision intact Genitalai No blood at perinium --->discharge --->ambulation JAIRO STACY M.D. Oct 30, 2016 10:18
--- NOTE | 2016-10-30 10:20 | DS ---
Date/Time of Note Date/Time of Note DATE: 10/30/16 TIME: 10:19 Discharge Summary Admission/Discharge Info Admit Date/Time Oct 25, 2016 at 15:55 Discharge Date/Time october Discharge Diagnosis Patient Condition: Stable Procedures primary c/section Hospital Course AFEBRILE, FEELS GOOD ,GASSY BUT PASSING GASES. HUNGRY. INCISION HEALING GOOD. STABLE. Home Meds Reported Medications Calcium Carbonate* (Calcium Carbonate*) 600 MG Ca Tab, 600 MG PO DAILY, TAB 07/05/16 Ferrous Gluconate (Iron) 236 Mg Tablet, 236 MG PO DAILY, TAB 07/05/16 Multivit/Min/Fol Ac/Iron/Pren* ( S*) 1 Tab Tab, 1 TAB PO DAILY, TAB 07/05/16 Primary Care Provider MD REGIS Powers RAMIN M.D. Oct 30, 2016 10:20
== END 2016-10-30 14:10 | disposition home or self-care (01) | DRG 765 ==
LOC: OBT 13:35 → L-D 13:35 → OBT 15:55 → L-D 17:10 → PP1 10-27 15:41
PROVIDERS: ADMIT Obstetrics & Gynecology; ATTEND Obstetrics & Gynecology
PROC: 0UB20ZZ Excision of Bilateral Ovaries, Open Approach (ICD-10-PCS; 2016-10-27)
PROC: 10D00Z1 Extraction of Products of Conception, Low, Open Approach (ICD-10-PCS; principal; 2016-10-27 10:45)
DX: O64.0XX0 Obstructed labor due to incomplete rotation of fetal head, not applicable or unspecified (principal); O41.03X0 Oligohydramnios, third trimester, not applicable or unspecified; O63.9 Long labor, unspecified; O61.0 Failed medical induction of labor; O32.4XX0 Maternal care for high head at term, not applicable or unspecified; O34.83 Maternal care for other abnormalities of pelvic organs, third trimester; Z3A.39 39 weeks gestation of pregnancy; Z37.0 Single live birth; D27.1 Benign neoplasm of left ovary; D27.0 Benign neoplasm of right ovary
CPT/HCPCS: 62319; 76815; 76818; 85025; 85610; 85730; 86592; 86885; 86900; 86901; 87340; 88307; 90715; 94760; 99464; G0463; J0290; J0690; J1885; J2274; J2370; J2405; J2590; J2765; J3010; J7120